=== PATIENT | male | born 1975 | race Caucasian/White ===

== ENCOUNTER 2022-04-13 06:14 | Outpatient (REF) | payer OTHER, SELFPAY ==
[2022-04-13 11:29] LABS: MANUAL DIFF FLAG NO
[2022-04-13 11:31] LABS: Appearance Urine Clear; Color Urine Yellow; Glucose Urine UA Negative (Negative); Leukocyte Esterase Urine Negative (Negative); Nitrite Urine Negative (Negative); PH 7.5 (5.0-9.0); Urine Blood Negative (Negative); Urine Ketones Negative (Negative); Urine Protein Trace mg/dL (Neg-Trace)
[2022-04-13 11:40] LABS: Basophils Percent Auto 0.8 % (0-2); Eosinophils Absolute Auto 0.2 X10*3/uL (0.0-0.4); Eosinophils Percent Auto 3.9 % (0-4); Hematocrit 47.8 % (42.0-52.0); Hemoglobin 16.1 g/dl (14.0-18.0); Imm Gran Abs Auto 0.01 X10*3/uL (0.00-0.03); Imm Gran Pct Auto 0.2 % (0.0-0.4); Lymphocytes Absolute Auto 1.9 X10*3/uL (1.2-4.9); Lymphocytes Percent Auto 37.9 % (20-40); Mean Corpuscular HGB Conc 33.7 g/dl (31.0-36.0); Mean Corpuscular Hemoglobin 32.5 pg (27.0-33.0); Mean Corpuscular Volume 96.4 fL (80.0-98.0); Mean Platelet Volume 10.1 fL (9.4-12.4); Monocytes Absolute Auto 0.6 X10*3/uL (0.1-1.2); Monocytes Percent Auto 11.6 % (2-11); Neutrophils Absolute Auto 2.2 x10*3/uL (2.0-8.3); Neutrophils Percent Auto 45.6 % (45-73); Platelet Count 229 X10*3/uL (160-400); Red Blood Count 4.96 X10*6/uL (4.60-5.80); Red Cell Distribution Width 12.5 % (11.0-16.0); White Blood Count 4.9 X10*3/uL (4.8-10.8)
[2022-04-13 13:33] LABS: Alanine Aminotransferase 19 U/L (0-40); Albumin Level 4.1 g/dL (3.5-5.0); Alkaline Phosphatase 52 U/L (39-117); Anion Gap 9 (12-20); Aspartate Amino Transferase 16 U/L (5-37); Bilirubin Total 0.7 mg/dL (0.0-1.0); Blood Urea Nitrogen 16 mg/dL (9-16); Calcium 9.2 mg/dL (8.4-10.2); Carbon Dioxide 30 mmol/L (22-29); Chloride 107 mmol/L (96-108); Cholesterol 176 mg/dL; Estimated Glomerular Filt Rate > 60; Glucose Fasting 90 mg/dL (60-99); HDL Cholesterol 48 mg/dL; LDL Cholesterol Calculated 107 mg/dl; Potassium 4.4 mmol/L (3.3-5.1); Sodium 142 mmol/L (135-145); TSH reflex Free T4 3.84 uIU/mL (0.32-4.0); Total Protein 6.5 g/dL (6.5-8.0); Triglycerides 106 mg/dL
== END 2022-04-13 06:15 | disposition home or self-care (01) ==
LOC: HO.HMGCLDS 06:14
PROVIDERS: PCP Nurse Practitioner Family; Visit Provider Nurse Practitioner Family
DX: Z00.00 Encounter for general adult medical examination without abnormal findings (principal)
CPT/HCPCS: 36415; 80053; 80061; 81003; 84443; 85025

== ENCOUNTER 2022-05-19 08:17 | Outpatient (REF) | payer OTHER, SELFPAY ==
--- NOTE | ~2022-05-19 | US_ITS ---
EXAMINATION: US ABDOMEN LIMITED CLINICAL INFORMATION: Intra-abdominal and pelvic swelling, mass and lump, unspecified. COMPARISON: None TECHNIQUE: Real-time imaging of the area of concern in the right lower quadrant as indicated by the patient. FINDINGS: Targeted ultrasound demonstrates no focal solid or cystic abnormality. No hernia defect. US/US abdomen limited IMPRESSION: No focal abnormality in the area of concern as above. Clinical follow-up and management recommended.
--- NOTE | ~2022-05-19 | US_ITS ---
EXAMINATION: US RETROPERITONEAL LIMITED (RENAL ONLY) CLINICAL INFORMATION: Family history of malignant neoplasm of kidney. COMPARISON: Ultrasound abdomen limited 05/19/2022. TECHNIQUE: Real-time imaging of the kidneys. FINDINGS: RIGHT KIDNEY: 10.2 x 6.5 x 5.7 cm (SAG x AP x TRV). The kidney is normal in size, contour, and echogenicity. Renal cortical thickness is normal. No calculi or focal parenchymal lesions. No hydronephrosis. Multiple tiny echogenic foci with no twinkle artifact or shadowing likely represent vascular/parenchymal calcifications. LEFT KIDNEY: 10.5 x 6.0 x 5.6 cm (SAG x AP x TRV). The kidney is normal in size, contour, and echogenicity. Renal cortical thickness is normal. No calculi or focal parenchymal lesions. No hydronephrosis. Multiple tiny echogenic foci with no twinkle artifact or shadowing likely represent vascular/parenchymal calcifications. US/US renal BI IMPRESSION: No acute sonographic abnormalities.
== END 2022-05-19 08:18 | disposition home or self-care (01) ==
LOC: HO.US 08:17
PROVIDERS: Visit Provider Nurse Practitioner Family
DX: R19.00 Intra-abdominal and pelvic swelling, mass and lump, unspecified site (principal); Z80.51 Family history of malignant neoplasm of kidney
CPT/HCPCS: 76705; 76775

== ENCOUNTER → 2022-06-16 07:45 | Outpatient (BNVA) | payer OTHER, SELFPAY | PROVIDERS: PCP Nurse Practitioner Family; Visit Provider Physician Assistant | DX: Z13.89 Encounter for screening for other disorder (principal) ==

== ENCOUNTER 2023-03-29 11:25 | Day surgery (SDC) | payer OTHER, SELFPAY ==
[2023-03-25 14:09] VITALS: BMI 24.6
--- NOTE | 2023-03-28 10:59 | HO.ANESPROP2 ---
Documented by User: Vaishnavi Loaiza NP 03/28/23 10:59 HPI - Anesthesia Eval Consult details Narrative: 47yo M for Colonoscopy [facility] Active Problems Active Problems: All Active Problems (Updated 06/16/22 @ 08:37 by Mely Jaeger PA-C) Abdominal mass (Acute) Family history of kidney cancer (Acute) Screening for colon cancer (Acute) Physical exam (Acute) Past Medical History Medical History (Updated 06/16/22 @ 08:37 by Mely Jaeger PA-C) ACL (anterior cruciate ligament) tear Family History Family History Father HTN (hypertension) Brother Cancer of kidney Surgical History Surgical History (Updated 03/29/23 @ 11:53 by Ling Rajan RN) Hx of anterior cruciate ligament surgery Surgical history unknown Social History Housing: House Patient Tobacco Use Status: Former Tobacco user Tobacco use type: Cigarette e-Cigarette/Vaping Use: Never Used Second Hand Smoke Exposure: No Are you DNR?: No Advance Directives: No Advance Directives Information Provided: Yes service: No Current occupational status: employed Current occupation: [email or web address] Current occupational exposures/hazards: No Cognitive needs: No Hearing needs: No Vision needs: No Meds Allergies Allergy/AdvReac Type Severity Reaction Status Date / Time No Known Allergies Allergy Verified 06/16/22 07:48 Home Medications Medication Instructions Recorded Confirmed Last Taken Type No Known Home Meds 03/29/23 03/29/23 Unknown History Exam Height,Weight and Vital Signs: Height 6 ft 2 in Weight 87.09 kg Assessment and Plan Assessment Anesthesia Assessment: Chart Reviewed Documented by User: John Montez MD 03/29/23 12:40 PMFSH Past Medical History Medical History (Updated 02/08/23 @ 08:37 by Mely Jaeger PA-C) ACL (anterior cruciate ligament) tear Family History Family History Father HTN (hypertension) Brother Cancer of kidney Family history of problems with anesthesia: No Surgical History Surgical History (Updated 03/29/23 @ 11:53 by Ling Rajan RN) Hx of anterior cruciate ligament surgery Surgical history unknown History of Problems with Anesthesia: No Social History Housing: House Patient Tobacco Use Status: Former Tobacco user Tobacco use type: Cigarette e-Cigarette/Vaping Use: Never Used Second Hand Smoke Exposure: No Are you DNR?: No Advance Directives: No Advance Directives Information Provided: Yes service: No Current occupational status: employed Current occupation: [email or web address] Current occupational exposures/hazards: No Cognitive needs: No Hearing needs: No Vision needs: No Meds Allergies Allergy/AdvReac Type Severity Reaction Status Date / Time No Known Allergies Allergy Verified 06/16/22 07:48 Home Medications Medication Instructions Recorded Confirmed Last Taken Type No Known Home Meds 03/29/23 03/29/23 Unknown History Exam Airway Mallampati Class: II TM Dist: >3cm Neck ROM: Full Loose/Missing/Broken Teeth: No Assessment and Plan Assessment Anesthesia Assessment: Anesthesia Plan Discussed Final Anesthetic Review Family History of Problems with Anesthesia: No History of Problems with Anesthesia: No NPO: Yes ASA Class: I Final Preanesthetic Review: No Changes in Pt Med Stat, Meds/Allgs Chart Reviewed, Consent Obtained/Reviewed and Anes Risks/Benef Reviewed Patient Risk: Low Procedure Risk: Low Anesthetic Plan Anesthetic Plan: MAC: Disposition: Standard PACU
--- NOTE | 2023-03-29 11:41 | MHC.SHP ---
Pre-Procedural Eval Section A Date of Service: 03/29/23 Section B Chief Complaint: Encounter for screening for malignant neoplasm of Relevant Family History (Specify if Yes): Yes Relevant Social History: None Present Medications: see Short Stay Collaborative assessment Medical History: No relevant PMH History of Previous Operations: Relevant previous surgery/procedure and date(s) (ACL (anterior cruciate ligament) tear) Allergies: Allergies Allergy/AdvReac Type Severity Reaction Status Date / Time No Known Allergies Allergy Verified 06/16/22 07:48 Review of Systems Sugical H&P ROS: Negative: Constitution, Cardiovascular, Respiratory, Neurological, Psychiatric, Hem-Onc, Allergic/Immunologic, Gastrointestinal, Genitourinary, Musculoskeletal, Integumentary, Endocrine and Eyes/Ears/Nose/Throat Exam Surgical H&P Exam: Normal: HEENT, Normal: Heart, Normal: Lungs, Normal: Extremities, Normal: Abdomen, Normal: Skin and Normal: Neurological Plan Diagnosis/Plan: Unchanged I have reviewed the history and physical and performed a pertinent physical examination on my patient. No changes have occurred unless specified. Time Spent With Patient Time: Total time managing care of this patient today ____ minutes.
[2023-03-29 11:50] VITALS: BP 114/76; PULSE 78; RESP 20; TEMP 36.6; O2SAT 100
[2023-03-29] MEDS: Lactated Ringers 1,000 ML 100 ML IVCONT (12:04)
--- NOTE | 2023-03-29 12:49 | W.PM.OPN ---
Operative Note Operative Note Date of Service: 03/29/23 Narrative: Operative Information Procedure Description: Colonoscopy Indication: screening Anesthesia: MAC COLONOSCOPY Instrument: Olympus variable stiffness ADULT scope 190L Colonoscopy Monitoring: Vital signs and clinical assessment, continuous EKG monitoring, Pulse oximetry, Carbon Dioxide monitoring and blood pressure monitoring were done throughout the procedure. Colon withdrawal time was 10 minutes. Procedure: The patient was placed in the left lateral decubitis position and pre-procedure medications were administered. After a digital rectal examination of the ano-rectum, the video colonoscope was inserted into the rectum and advanced through the colon to the cecum/TI. The colonoscope was slowly withdrawn in a retrograde panoramic fashion and the colon mucosa was carefully examined including a retroflexed view of the rectum. Findings and interventions are described below. Procedure Difficulty: moderate Findings: Terminal Ileum-normal Cecum: 3-4 mm and 2-3 mm sessile polyps removed with biopsy forceps Ascending Colon: normal Transverse Colon -normal Descending Colon:normal Sigmoid Colon: normal Rectum: Retroflexion with small internal hemorrhoids, grade I Anorectum - normal Colon preparation: Colstrip Bowel Preparation Scale Right colon; 2 Transverse colon: 3 Left colon; 3 (0 = Unprepared colon segment with mucosa not seen due to solid stool that cannot be cleared. 1 = Portion of mucosa of the colon segment seen, but other areas of the colon segment not well seen due to staining, residual stool and/or opaque liquid. 2 = Minor amount of residual staining, small fragments of stool and/or opaque liquid, but mucosa of colon segment seen well. 3 = Entire mucosa of colon segment seen well with no residual staining, small fragments of stool or opaque liquid) Impression and Post Procedure Diagnosis: polyps internal hemorrhoids Plan: High fiber diet leaflet Avoid straining at stool, epsom salts and sitz bath, anusol supps or cream Repeat Colonoscopy in 5-7 years if pre cancerous polyps, otherwise 10 yrs if benign or earlier if clinically indicated Above findings were reviewed with the patient and relevant handouts were provided if indicated.
[2023-03-29 12:58] VITALS: BP 115/63; PULSE 66; RESP 16; TEMP 36.6; O2SAT 98
[2023-03-29 13:13] VITALS: BP 125/77; PULSE 54; RESP 16; TEMP 36.3; O2SAT 99
== END 2023-03-29 14:15 | disposition home or self-care (01) ==
PROVIDERS: PCP Nurse Practitioner Family; Visit Provider Internal Medicine Gastroenterology
PROC: 0DJD8ZZ Inspection of Lower Intestinal Tract, Via Natural or Artificial Opening Endoscopic (ICD-10-PCS; CPT 45378; principal; 2023-03-29 13:20)
DX: Z12.11 Encounter for screening for malignant neoplasm of colon (principal); K63.5 Polyp of colon; K64.0 First degree hemorrhoids; R19.00 Intra-abdominal and pelvic swelling, mass and lump, unspecified site; Z80.51 Family history of malignant neoplasm of kidney; Z87.891 Personal history of nicotine dependence; Z79.899 Other long term (current) drug therapy
CPT/HCPCS: 45380; 88305; J2704

== ENCOUNTER → 2023-03-29 11:25 | Outpatient (BNV) | payer OTHER, SELFPAY | PROVIDERS: PCP Nurse Practitioner Family; Visit Provider Internal Medicine Gastroenterology | DX: Z12.11 Encounter for screening for malignant neoplasm of colon (principal); D12.0 Benign neoplasm of cecum; K64.0 First degree hemorrhoids | CPT/HCPCS: 45380 ==

== ENCOUNTER 2023-04-12 07:31 | Outpatient (AMB) | payer OTHER, SELFPAY ==
--- NOTE | 2023-04-12 07:33 | MHC.PC.OV ---
Vital Signs 04/12/23 07:37 Height 6 ft 2 in Weight 189 lb BMI 24.3 BP 108/60 Blood Pressure Location Rt brachial Position Sitting Pulse 61 Pulse Source Pulse Oximeter Pulse Oximetry (%) 98 Oxygen Delivery Method Room Air Intake Visit Reasons: Annual PE Intake Note: Patient here for Physical exam, states he doesn't have any new issues or concerns. Colonoscopy was done 03/29/23 at [facility] [place]. Allergies No Known Allergies Allergy (Verified 04/12/23 07:37) Medication List - Last Reconciled 04/12/23 by FLOWER Mullins No Known Home Meds Tobacco use date assessed: 04/12/23 Dental Screening Dental Screen Date: 04/12/23 Did you have a dental visit in the last 12 months?: Yes Did you have a dental problem in the last 6 months where you did not have access to dental care?: No Was dental information given to patient?: Patient has dentist HPI Annual PE HPI Details Pt is here for a PE. Will order labs. Colon screen is up to date. [facility] Medical History ACL (anterior cruciate ligament) tear Surgical History Hx of colonoscopy Hx of anterior cruciate ligament surgery Surgical history unknown Family History Father HTN (hypertension) Brother Cancer of kidney Social History Housing: House Patient Tobacco Use Status: Former Tobacco user Tobacco use type: Cigarette e-Cigarette/Vaping Use: Never Used Second Hand Smoke Exposure: No service: No Current occupational status: employed Current occupation: [email or web address] Current occupational exposures/hazards: No Cognitive needs: No Hearing needs: No Vision needs: No Questionnaire Thrive Questionnaire Date Thrive assessed: 04/08/22 AUDIT C Alcohol Use Questionnaire (AUDIT-C) 1. How often do you have a drink containing alcohol?: 2-3 times a week 2. How many drinks containing alcohol do you have on a typical day when you are drinking?: 5 or 6 3. How often do you have six or more drinks on one occasion?: Monthly Total Score: 7 Score Reviewed/Action Taken: Yes JACE-7 AMB Questionnaire JACE-7 Date JACE - 7 assessed: 04/08/22 Source: Developed by Drs. Milo Cantu, Yuly Burch, Brandin Cochran and colleagues, with an educational stephanie from [employer]. Review of Systems Const Denies chills and Denies fever(s) Eyes Denies blurry vision ENT Denies vertigo, Denies dizziness and Denies sore throat Card Denies chest pain at rest, Denies chest pain with activity, Denies diaphoresis, Denies dyspnea and Denies dyspnea on exertion Resp Denies cough, Denies dyspnea, Denies dyspnea on exertion and Denies wheezing GI Denies abdominal pain, Denies melena, Denies hematochezia, Denies constipation, Denies diarrhea and Denies loose stools Denies hematuria Musc Denies numbness and Denies tingling Skin/Breast Denies lesions Neuro Denies vertigo, Denies dizziness, Denies numbness and Denies tingling Psych Denies anxiety, Denies depression, Denies homicidal ideation, Denies suicidal ideation and Denies other (substance abuse) Aller/Immun Denies wheezing Physical exam (Primary Care) Vital Signs: Last Vital Signs Pulse 61 04/12/23 07:37 BP 108/60 04/12/23 07:37 Pulse Ox 98 04/12/23 07:37 Oxygen Delivery Method Room Air 04/12/23 07:37 BMI result Body Mass Index 24.3 Tobacco/Smoking Status: Tobacco use Status Tobacco use date assessed 04/12/23 04/12/23 07:41 Patient Tobacco Use Status Former Tobacco user 04/12/23 07:35 Tobacco use type Cigarette 04/12/23 07:35 e-Cigarette/Vaping Use Never Used 04/12/23 07:35 Thrive Assessment: Date of Thrive Assessment Date Thrive assessed 04/08/22 04/12/23 07:35 Const General: cooperative Nutritional Appearance: well nourished Orientation/consciousness: patient oriented x3 HENMT Head: Yes normal to inspection, Yes normocephalic and Yes atraumatic Ears: TM's normal bilaterally Eyes General: appearance normal, both eyes and all related structures Alignment and Position: alignment normal and position normal Neck Neck: Yes normal visual inspection and Yes no lymphadenopathy Thyroid: Thyroid normal Resp Effort & Inspection: normal respiratory effort Auscultation: clear to auscultation bilaterally Cardio Rate: regular rate Rhythm: regular rhythm Heart sounds: S1 normal heart sound present, S2 normal heart sound present and no murmurs GI Palpation (GI): Soft to palpation and nontender Auscultation: normal bowel sounds Male General Exam: Yes normal external exam Penis: normal penis Scrotum: scrotum normal, testes descended bilaterally and no inguinal hernias Testes: no testicular mass Skin Rashes: no rashes Neuro General: patient oriented x3, moves all extremities, no focal motor deficits and deep tendon reflexes 2+ bilaterally Romberg Test: Negative Psych Appearance: grossly normal Mental Status: mental status grossly normal Speech and movement: Normal speech and movement present Affect: normal affect Attitude: cooperative Thought process: Normal thought process present Thought content: Normal thought content present Insight: Good insight present (Psych) Judgement: Good judgement present (Psych) Assessment and Plan Assessment & Plan (1) Physical exam: Code(s): Z - Encounter for general adult medical examination without abnormal findings Plan: Labs ordered Plan The patient agreed to the use of a medical lab director for this encounter. Scribed for BHARATH Red- by Mis Cordova medical lab director, on 04/12/2023 at 07:45 EST. Orders: Orders UA CC w/rflx Micro + Cult Today Z00.00 - Encounter for general adult medical examination without abnormal findings Lipid Panel Today Z00.00 - Encounter for general adult medical examination without abnormal findings Complete Blood Count Auto Diff Today Z00.00 - Encounter for general adult medical examination without abnormal findings Comprehensive [place]. Panel Fast Today Z00.00 - Encounter for general adult medical examination without abnormal findings TSH reflex Free T4 Today Z00.00 - Encounter for general adult medical examination without abnormal findings Coding Level of Care Code Est Pt Prev Care 40-64y(33459) Diagnoses Physical exam Z00.00
[2023-04-12 07:37] VITALS: BP 108/60; PULSE 61; O2SAT 98; BMI 24.3
== END 2023-04-12 07:56 | disposition home or self-care (01) ==
PROVIDERS: Visit Provider Nurse Practitioner Family
DX: Z00.00 Encounter for general adult medical examination without abnormal findings (principal)
CPT/HCPCS: 99396

== ENCOUNTER 2024-04-26 07:22 | Outpatient (AMB) | payer OTHER, SELFPAY ==
[2024-04-26 07:43] VITALS: BP 100/60; PULSE 56; O2SAT 99; BMI 25.2
--- NOTE | 2024-04-26 07:43 | MHC.PC.OV ---
Vital Signs 04/26/24 07:43 Height 6 ft 1 in Weight 191 lb BMI 25.2 BP 100/60 Blood Pressure Location Lt brachial Position Sitting Pulse 56 Pulse Source Pulse Oximeter Pulse Oximetry (%) 99 Oxygen Delivery Method Room Air Intake Visit Reasons: PE Intake Note: Pt is here today for his PE Allergies No Known Allergies Allergy (Verified 04/26/24 07:51) Medication List - Last Reconciled 04/26/24 by LORI Mullins No Known Home Meds Tobacco use date assessed: 04/26/24 Dental Screening Dental Screen Date: 04/26/24 Did you have a dental visit in the last 12 months?: Yes Did you have a dental problem in the last 6 months where you did not have access to dental care?: No Was dental information given to patient?: Patient has dentist HPI PE HPI Details History of Present Illness The patient is a 48-year-old male presenting with cerumen impaction in the left ear, as part of an annual physical examination. He reports difficulties with the left ear due to impaction, describing the hearing obstruction as severe enough that the eardrum is not visible. He has a history of attempting to manage this condition periodically, with limited success due to the difficulty of self-treatment. The issue is chronic, though currently not associated with pain or infection. Interventions have involved typical at-home remedies but have required professional irrigation due to insufficiency of those methods. This problematic ear hygiene contributes significantly to his discomfort. Additionally, the patient has a family history of renal cancer; his brother previously underwent nephrectomy due to renal cancer. There is no new onset of symptoms related to cancer in the patient (previous [place]). Health Maintenance - Colonoscopy status: up-to-date - Recommendation for tetanus vaccination with pertussis coverage - Blood pressure assessed as within normal range Social History - Soon to become a new father with discussions of family planning. 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 - Reports a history of alcohol consumption. Review of Systems - General: Denies fevers or chills. - Cardiovascular: Denies chest pain or shortness of breath. - Gastrointestinal: Denies blood in stool, constipation, diarrhea. - Neurological: Denies numbness or tingling; balanced on a neurological test per conversation. Physical Exam General: Cooperative, healthy appearing, comfortable, no acute distress and well developed Orientation: Patient oriented x3 Limitations: No limitations Head: Normal to inspection Ears: cerumen impacting TM on left, after ear lavage TM easily seen Nose: Normal external nose present Face and sinus: Normal facial exam Eyes: Appearance normal, both eyes and all related structures Neck: Normal visual inspection and Yes full ROM Respiratory: Normal respiratory effort and able to speak in complete sentences. Clear to auscultation bilaterally Cardiovascular: Regular rate and rhythm. Normal S1 and S2 GI: Normal to inspection. Soft to palpation and nontender Skin: No rashes or lesions noted Neuro: Patient oriented x3 Extremities: Normal to inspection, left knee noted to have issues affecting the hip Results - Labs: Planned fasting labs (test type not specified) Plan - Irrigation of cerumen impaction in the left ear to relieve obstruction and improve symptoms. - Encourage completion of scheduled laboratory tests after fasting. - Discuss option and scheduling of tetanus with pertussis booster vaccination. - Continue with routine health maintenance and follow-up for annual physical results. - Monitor for signs of hereditary cancer risks and update family history accordingly. Patient was informed and verbally consented to the use of an ambient scribe for clinic note documentation during this visit. Discussion Notes During the visit, I discussed the current ear condition and recommended flushing the left ear to address the cerumen impaction. I explained the possible transient dizziness associated with the procedure due to the impact on the balance mechanism in the ear, but reassured that these symptoms are not common. We talked about the importance of routine health maintenance and went over the need for a tetanus booster, which includes pertussis protection, aligning with upcoming family responsibilities. I outlined the next steps for obtaining fasting labs and the rationale behind these tests. The patient was advised on monitoring familial cancer history and updating his own observations. Follow-up discussions will occur in the subsequent annual visit unless developments necessitate earlier intervention. Patient Instructions - complete ear irrigation for cerumen impaction done today. - Obtain fasting lab tests as planned. - Consider receiving a tetanus and pertussis booster at your convenience. - Maintain routine follow-up for annual health check and related screenings. - Be aware of any changes or concerns regarding ear health and family cancer history. - Continue with current healthy lifestyle practices. [facility] Medical History ACL (anterior cruciate ligament) tear Surgical History Hx of colonoscopy Hx of anterior cruciate ligament surgery Surgical history unknown Family History Father HTN (hypertension) Brother Cancer of kidney Social History Housing: House Patient Tobacco Use Status: Former Tobacco user Tobacco use type: Cigarette e-Cigarette/Vaping Use: Never Used Second Hand Smoke Exposure: No service: No Current occupational status: employed Current occupation: [employer] Current occupational exposures/hazards: No Cognitive needs: No Hearing needs: No Vision needs: No Questionnaire PHQ-9 Over the last 2 weeks, how often have you been bothered by any of the following problems? 1. Little interest or pleasure in doing things: not at all 2. Feeling down, depressed, or hopeless: not at all 3. Trouble falling or staying asleep, or sleeping too much: not at all 4. Feeling tired or having little energy: not at all 5. Poor appetite or overeating: not at all 6. Feeling bad about yourself - or that you are a failure or have let yourself or your family down: not at all 7. Trouble concentrating on things, such as reading the newspaper or watching television: not at all 8. Moving or speaking so slowly that other people could have noticed. Or the opposite - being so fidgety or restless that you have been moving around a lot more than usual: not at all 9. Thoughts that you would be better off or of hurting yourself in some way: not at all Total score: 0 Depression Screening Interpretation: Negative Depression Screening Done: Yes 99265 - PHQ-9 Billing: Yes Source: Developed by Drs. Milo Cantu, Yuly Burch, Brandin Cochran and colleagues, with an educational stephanie from [employer]. Thrive Questionnaire Date Thrive assessed: 04/26/24 I am a: Patient What is your living situation today?: I have a steady place to live Within the past 12 months, did the food you bought not last and you didn't have the money to get more?: Never true Within the past 12 months, did you worry whether your food would run out before you got money to buy more?: Never true Do you have trouble paying for medicines?: No Do you have trouble getting transportation to medical appointments?: No Do you have trouble paying your heating and electricity bill?: No Do you have trouble taking care of your child, family member or friend?: No Do you have trouble with day-to-day activities such as bathing, preparing meals, shopping, managing finances, etc.?: No Are you currently unemployed and looking for a job?: No Are you interested in more education?: No Please select the resources that you would like help with: None Currently or been in a relationship where the following occur: No concerns reported THRIVE Score: 0 AUDIT C Alcohol Use Questionnaire (AUDIT-C) 1. How often do you have a drink containing alcohol?: 2-3 times a week 2. How many drinks containing alcohol do you have on a typical day when you are drinking?: 3 or 4 3. How often do you have six or more drinks on one occasion?: Weekly Total Score: 7 Score Reviewed/Action Taken: Yes JACE-7 AMB Questionnaire JACE-7 Date JACE - 7 assessed: 04/26/24 Feeling nervous, anxious, or on edge: 0 = Not at all Not being able to stop or control worryin = Not at all Worrying too much about different things: 0 = Not at all Trouble relaxin = Not at all Being so restless that it is hard to sit still: 0 = Not at all Becoming easily annoyed or irritable: 0 = Not at all Feeling afraid as if something awful might happen: 0 = Not at all Total JACE-7 score (0-4 normal; 5-9 mild; 10-14 moderate; 15-21 severe): 0 Source: Developed by Drs. Milo Cantu, Yuly Burch, Brandin Cochran and colleagues, with an educational stephanie from [employer]. Physical exam (Primary Care) Vital Signs: Last Vital Signs Pulse 56 04/26/24 07:43 BP 100/60 04/26/24 07:43 Pulse Ox 99 04/26/24 07:43 Oxygen Delivery Method Room Air 04/26/24 07:43 BMI result Body Mass Index 25.2 Tobacco/Smoking Status: Tobacco use Status Tobacco use date assessed 04/26/24 04/26/24 07:51 Patient Tobacco Use Status Former Tobacco user 04/26/24 07:45 Tobacco use type Cigarette 04/26/24 07:45 e-Cigarette/Vaping Use Never Used 04/26/24 07:45 PHQ-9: PHQ-9 Score PHQ-9: Total score 0 04/26/24 07:49 Depression Screening Interpretation: Negative Thrive Assessment: Date of Thrive Assessment Date Thrive assessed 04/26/24 04/26/24 07:51 Currently or been in a relationship where the following occur: No concerns reported Office Procedures Cerumen Removal From which ear canal was the cerumen removed: left Removal: irrigation Notes: patient tolerated procedure well and ear canal clear [id number] Irrigation/Lavage Immunizations Boostrix Tdap 2.5 Lf unit-8 mcg-5 Lf/0.5 mL intramuscular syringe Performing Provider: FLOWER Mullins Performing Location: [facility] [place] [facility] Administered by: GLENIS Ricardo on 04/26/24 08:07 Dose Route Admin Location Dispensed Lot Number Expiration Date NDC Oven Dumper 0.5 mL IM Right Deltoid 0.5 mL [id number] 05/30/26 20445-331-72 [employer] VIS Given Date VIS Provided VIS Publication Date 04/26/24 Single Vaccine 20 Eligibility Eligibility Date Funding Source Not [facility] Eligible 04/26/24 Private Coding Level of Care Code Est Pt Prev Care 40-64y(00322) Diagnoses Physical exam Z00.00 Cerumen debris on tympanic membrane H61.20 CPT Codes Office Procedure - CPT: 26423-Qec Irrigation/Lavage ([id number]) Additional Codes PHQ-9 - 54244 - PHQ-9 Billing: Yes ([id number]) Assessment & Plan Assessment & Plan (1) Physical exam: Code(s): Z00.00 - Encounter for general adult medical examination without abnormal findings Category: Medical (2) Cerumen debris on tympanic membrane: Code(s): H61.20 - Impacted cerumen, unspecified ear Category: Medical Plan . Orders: Orders Comprehensive [place]. Panel Fast Today Z00.00 - Encounter for general adult medical examination without abnormal findings TSH reflex Free T4 Today Z00.00 - Encounter for general adult medical examination without abnormal findings TDaP Immunization Today Z23 - Encounter for immunization Complete Blood Count Auto Diff Today Z00.00 - Encounter for general adult medical examination without abnormal findings UA CC w/rflx Micro + Cult Today Z00.00 - Encounter for general adult medical examination without abnormal findings Lipid Panel Today Z00.00 - Encounter for general adult medical examination without abnormal findings Prostate Specific Antigen Scr Today Z12.5 - Encounter for screening for malignant neoplasm of prostate Medications: New Boostrix Tdap (diphth,pertus(acell),tetanus) 0.5 mL IM ONCE 0.5 mL 0RF NS Z23 - Encounter for immunization
== END 2024-04-26 08:19 | disposition home or self-care (01) ==
PROVIDERS: PCP Nurse Practitioner Family; Visit Provider Nurse Practitioner Family
DX: Z00.00 Encounter for general adult medical examination without abnormal findings (principal); H61.22 Impacted cerumen, left ear; Z23 Encounter for immunization

== ENCOUNTER → 2024-04-26 07:22 | Outpatient (BNVA) | payer OTHER, SELFPAY | PROVIDERS: PCP Nurse Practitioner Family; Visit Provider Nurse Practitioner Family | DX: Z00.01 Encounter for general adult medical examination with abnormal findings (principal); Z23 Encounter for immunization; H61.22 Impacted cerumen, left ear | CPT/HCPCS: 69209; 90471; 90715; 96127 ==

== ENCOUNTER 2025-04-29 12:21 | Outpatient (AMB) | payer OTHER, SELFPAY ==
--- NOTE | 2025-04-29 12:24 | MHC.PC.OV ---
Vital Signs 04/29/25 12:25 Height 6 ft 1 in Weight 190 lb BMI 25.1 BP 108/72 Blood Pressure Location Lt brachial Position Sitting Respiration 16 Pulse 75 Pulse Source Pulse Oximeter Temp 98.4 F Temp Source Oral Pulse Oximetry (%) 97 Oxygen Delivery Method Room Air Intake Visit Reasons: Annual PE Intake Note: Pt is here today for PE. Allergies No Known Allergies Allergy (Verified 04/29/25 12:26) Tobacco use date assessed: 04/29/25 Dental Screening Dental Screen Date: 04/29/25 Did you have a dental visit in the last 12 months?: Yes Did you have a dental problem in the last 6 months where you did not have access to dental care?: No Was dental information given to patient?: Patient has dentist HPI Annual PE HPI Details History of Present Illness The patient is a 49 year old male presenting for a physical examination. He reports doing quite well overall. His colonoscopy is up to date. Health Maintenance Fasting laboratory studies and a PSA test were ordered for the patient to complete in the near future. Social History Review of Systems - Constitutional: Reports doing well overall. - Cardiovascular: Denies chest pain. - Respiratory: Denies shortness of breath. - Gastrointestinal: Denies blood in stool, constipation, and diarrhea. - Psychiatric: Denies suicidal ideation and homicidal ideation. Physical Exam General: Cooperative, healthy appearing, comfortable, no acute distress and well developed Orientation: Patient oriented x3 Limitations: No limitations Head: Normal to inspection Ears: Hearing grossly normal bilaterally Nose: Normal external nose present Face and sinus: Normal facial exam Eyes: Appearance normal, both eyes and all related structures Neck: Normal visual inspection and Yes full ROM Respiratory: Normal respiratory effort and able to speak in complete sentences. Clear to auscultation bilaterally Cardiovascular: Regular rate and rhythm. Normal S1 and S2 GI: Normal to inspection. Soft to palpation and nontender : Testicles without masses/lesions and no hernias appreciated Skin: No rashes or lesions noted Neuro: Patient oriented x3 Extremities: Normal to inspection Results Plan Discussion Notes I ordered labs for the patient and instructed him that he will need to get these done in the near future. I also informed him that the labs require fasting and that a PSA test has been added. Patient Instructions - Please schedule an appointment to have your lab work done in the near future. - You will need to fast before your lab test. - Your lab orders include a PSA test. [facility] Medical History ACL (anterior cruciate ligament) tear Surgical History Hx of colonoscopy Hx of anterior cruciate ligament surgery Surgical history unknown Family History Father HTN (hypertension) Brother Cancer of kidney Social History Housing: House Patient Tobacco Use Status: Former Tobacco user Tobacco use type: Cigarette e-Cigarette/Vaping Use: Never Used Second Hand Smoke Exposure: No service: No Current occupational status: employed Current occupation: [employer] Current occupational exposures/hazards: No Cognitive needs: No Hearing needs: No Vision needs: No Questionnaire PHQ-9 Over the last 2 weeks, how often have you been bothered by any of the following problems? 1. Little interest or pleasure in doing things: not at all 2. Feeling down, depressed, or hopeless: not at all 3. Trouble falling or staying asleep, or sleeping too much: not at all 4. Feeling tired or having little energy: not at all 5. Poor appetite or overeating: not at all 6. Feeling bad about yourself - or that you are a failure or have let yourself or your family down: not at all 7. Trouble concentrating on things, such as reading the newspaper or watching television: not at all 8. Moving or speaking so slowly that other people could have noticed. Or the opposite - being so fidgety or restless that you have been moving around a lot more than usual: not at all 9. Thoughts that you would be better off or of hurting yourself in some way: not at all Total score: 0 Depression Screening Interpretation: Negative Depression Screening Done: Yes 19919 - PHQ-9 Billing: Yes Source: Developed by Drs. Milo Cantu, Yuly Burch, Brandin Cochran and colleagues, with an educational stephanie from [employer]. Thrive Questionnaire Date Thrive assessed: 04/29/25 I am a: Patient What is your living situation today?: I have a steady place to live Within the past 12 months, did the food you bought not last and you didn't have the money to get more?: Never true Within the past 12 months, did you worry whether your food would run out before you got money to buy more?: Never true Do you have trouble paying for medicines?: No Do you have trouble getting transportation to medical appointments?: No Do you have trouble paying your heating and electricity bill?: No Do you have trouble taking care of your child, family member or friend?: No Do you have trouble with day-to-day activities such as bathing, preparing meals, shopping, managing finances, etc.?: No Are you currently unemployed and looking for a job?: No Are you interested in more education?: No Please select the resources that you would like help with: None Currently or been in a relationship where the following occur: No concerns reported THRIVE Score: 0 AUDIT C Alcohol Use Questionnaire (AUDIT-C) 1. How often do you have a drink containing alcohol?: 2-3 times a week 2. How many drinks containing alcohol do you have on a typical day when you are drinking?: 3 or 4 3. How often do you have six or more drinks on one occasion?: Less than monthly Total Score: 5 Score Reviewed/Action Taken: Yes JACE-7 AMB Questionnaire JACE-7 Date JACE - 7 assessed: 04/29/25 Feeling nervous, anxious, or on edge: 0 = Not at all Not being able to stop or control worryin = Not at all Worrying too much about different things: 0 = Not at all Trouble relaxin = Not at all Being so restless that it is hard to sit still: 0 = Not at all Becoming easily annoyed or irritable: 0 = Not at all Feeling afraid as if something awful might happen: 0 = Not at all Total JACE-7 score (0-4 normal; 5-9 mild; 10-14 moderate; 15-21 severe): 0 Source: Developed by Drs. Milo Cantu, Yuly Burch, Brandin Cochran and colleagues, with an educational stephanie from [employer]. JACE-7 Assessment Billing JACE-7 Assessment Tool: JACE-7 Assessment 17829 Physical exam (Primary Care) Vital Signs: Last Vital Signs Temp 98.4 F 04/29/25 12: Pulse 75 04/29/25 12:25 Resp 16 04/29/25 12:25 BP 108/72 04/29/25 12:25 Pulse Ox 97 04/29/25 12:25 Oxygen Delivery Method Room Air 04/29/25 12:25 BMI result Body Mass Index 25.1 Tobacco/Smoking Status: Tobacco use Status Tobacco use date assessed 04/29/25 04/29/25 12:29 Patient Tobacco Use Status Former Tobacco user 04/29/25 12:29 Tobacco use type Cigarette 04/29/25 12:29 e-Cigarette/Vaping Use Never Used 04/29/25 12:29 PHQ-9: PHQ-9 Score PHQ-9: Total score 0 04/29/25 12:29 Depression Screening Interpretation: Negative Thrive Assessment: Date of Thrive Assessment Date Thrive assessed 04/29/25 04/29/25 12:29 Currently or been in a relationship where the following occur: No concerns reported Coding Level of Care Code Est Pt Prev Care 40-64y(21494) Diagnoses Physical exam Z00. Screening for prostate cancer Z12. Additional Codes JACE-7 Assessment Billing - JACE-7 Assessment Tool: JACE-7 Assessment 40409 ([id number]) PHQ-9 - 61203 - PHQ-9 Billing: Yes ([id number]) Assessment & Plan Assessment & Plan (1) Physical exam: Code(s): Z00.00 - Encounter for general adult medical examination without abnormal findings Category: Medical (2) Screening for prostate cancer: Code(s): Z12.5 - Encounter for screening for malignant neoplasm of prostate Category: Medical Plan . Orders: Orders TSH reflex Free T4 Today Z00.00 - Encounter for general adult medical examination without abnormal findings UA CC w/rflx Micro + Cult Today Z00.00 - Encounter for general adult medical examination without abnormal findings Complete Blood Count Auto Diff Today Z00.00 - Encounter for general adult medical examination without abnormal findings Comprehensive [place]. Panel Fast Today Z00.00 - Encounter for general adult medical examination without abnormal findings Lipid Panel Today Z00.00 - Encounter for general adult medical examination without abnormal findings Prostate Specific Antigen Scr Today Z12.5 - Encounter for screening for malignant neoplasm of prostate
[2025-04-29 12:25] VITALS: BP 108/72; PULSE 75; RESP 16; TEMP 36.9; O2SAT 97; BMI 25.1
== END 2025-04-29 13:26 | disposition home or self-care (01) ==
LOC: HO.HMCC 12:21
PROVIDERS: PCP Nurse Practitioner Family; Visit Provider Nurse Practitioner Family
DX: Z00.00 Encounter for general adult medical examination without abnormal findings (principal); Z12.5 Encounter for screening for malignant neoplasm of prostate

== ENCOUNTER → 2025-04-29 12:21 | Outpatient (BNVA) | payer OTHER, SELFPAY | PROVIDERS: PCP Nurse Practitioner Family; Visit Provider Nurse Practitioner Family | DX: Z13.31 Encounter for screening for depression (principal); Z13.39 Encounter for screening examination for other mental health and behavioral disorders | CPT/HCPCS: 96127 ==